=== PATIENT | female | born 1955 | race Two or more races ===

== ENCOUNTER 2016-08-15 08:16 | Outpatient (RCR) ==
--- NOTE | 2016-08-15 09:35 | OUTEVAL ---
Date of Service:08/15/16 SUBJECTIVE: Patient reports being schedule for a left TKA on 09/04/16. States she has attended a Total knee class and is supposed to get a HEP to work on prior to surgery. States left knee pain from arthritis has led her to need a TKA. She reports pain with most weight bearing. She understands that Dr. Zuleta does not usually order Home Health PT and she plans to come here for Outpatient PT. States she is worried about initially going home from the hospital due to having steps to get into her home. OBJECTIVE: Patient ambulates without an assistive device with decreased stance on the left LE. She demonstrates decreased left knee and hip flexion during swing phase. AROM of the left knee is full extension to 110 degrees with reports of pain and tightness. Right knee AROM is full extension to 130 degrees flexion. Patient instructed in HEP consisting of AP's, heel slides, quad sets, SAQ's, standing HS curls, and SLR's. Advised to take pain medication as prescribed and use ice consistently following surgery. Also gave instructions for Homemade ice packs and instructions for proper sequence for ascending and descending stairs. Patient given our phone number and advised to call with any questions prior to or following surgery. ASSESSMENT: Patient demonstrates understanding of HEP for left knee. She will be having a left TKA in a few weeks. She demonstrates no further skilled therapy at this time. Goal: Patient independent with HEP.-met. PLAN: Patient discharged with a HEP. MTDD
== END 2016-09-07 ==
PROVIDERS: ATTEND Orthopaedic Surgery
DX: M25.562 Pain in left knee (principal); M17.12 Unilateral primary osteoarthritis, left knee

== ENCOUNTER → 2016-10-08 | Outpatient (RCR) ==
--- NOTE | 2016-09-13 13:42 | RS.OPPTEV2 ---
Date of Note: 09/12/16 Visit #: 1 Date of Evaluation: 09/12/16 Payer Source: Medicaid Surgery Performed?: Yes (09/04/16 Left TKA) Treatment Diagnosis: Left knee pain, left knee effusion, s/p TKA History of Condition/Mechanism of Injury:: Reports continued knee pain from arthritis led her to have a TKA. Prior Level of Function.....Patient was independent with: ADL's, Self Care, Work /Vocation, Caregiving, Ambulation/Mobility, Community Integration/Access Functional Limitations: Sleep, Self Care, ADL's, Reaching, Pushing, Pulling, Lifting, Carrying, Sitting, Standing, Bending, Squatting, Ambulation, Community Access/Integration Current Subjective/complaints:: Patient reports that she was in the hospital overnight following her surgery. States she has been icing the knee and taking pain medications as prescribed. States she is sleeping on the couch because it is more comfortable at this time. She is using a rolling walker with all ambulation. Reports some tingling at times in the left LE, mostly later in the day. Reports she is limited with all selfcare and ADL's due to pain and limited knee motion. She is hopping it will not be long before she can drive. Treatment Side (optional): Left Medical History Medical History: Hypertension, Arthritis Surgical History: Hysterectomy Surgical History Comments:: Heart stents Hx Home Medications: Percocet, Lopressor, Lisinopril Patient's Goals: Her goal is to return to her previous level of function. Pain Assessment - Pain Description Pain Location: left knee Pain Description: Throbbing, Aching Current Pain Intensity: 8/10 Worst Pain Intensity: 10/10 Functional Outcome Measure LE Functional Scale: 15 (15/80=81.25% impairment) - G Codes & Severity Modifier G Codes & Modifier: NA Source of G Code score: NA Observation - Observation Inspection: Left knee presents with brittney intact to incision line. Demonstrates significant bruising throughout the left thigh,posterior knee, and calf. Girth Measurement Lower: Left LE: most superior aspect of incision 49 cm, Tibial plateau 39.25 cm, malleoli 22.75 cm Gait - Gait Pattern Gait Comments: Patient ambulates with a rolling walker with decreased stance on the left LE, decreased heelstrike, and decreased left hip and knee flexion. - Left Knee ROM Left Knee Extension: -1 from full extension Left Knee Flexion: 50 (degrees AAROM) Knee ROM Limitations: Soft Tissue Tightness, Pain - Right Knee ROM Right Knee Extension: full extension Right Knee Flexion: 130 (degrees AROM) - Left Knee Strength Left Knee Extension: 4- Good- Left Knee Flexion: 4- Good- - Right Knee Strength Right Knee Extension: 5 Normal Right Knee Flexion: 5 Normal Palpation Comments:: General tenderness throughout the left knee joint. Sensation - Sensation Comments: Reports numbness along the lateral aspect of the incision line. - Heat/Cryotherapy Treatment: Cryotherapy (X 15 mins to left knee following exercise) Interventions - Exercise/Activities/Manual Therapy Exercises/Activities: Patient assisted with left knee AROM flexion and extension. Performed SLR with assistance, Quad sets and ankle pumps. Discussed the importance of regaining knee flexion and extension early in rehab. Encouraged her to to emphasis knee flexion. Manual Therapy: NA - Charges Total Direct Minutes: 55 mins Total Treatment Time: 55 mins Procedures billed for this date of service:: BINGAL Low X 4, CP Assessment Assessment: Patient presents to therapy 8 days s/p left TKA. She presents limited knee AROM and strength due to effusion of the knee joint from her recent surgery. She reports limited ability with all selfcare and ADL's at this time due to limited AROM and pain. She will benefit from therapeutic exercises and modalities to assist her in regaining full AROM and returning to hre previous level of function. Patient Education: Education of diagnosis, Body/Joint mechanics, Home Exercise Program, Home Safety, Activity Modification, Education of Plan of Care Rehab Potential: Good Short Term Goals Goal #1: Patient independent in basic HEP. Goal to be met by: 09/26/16 Goal #2: Left knee active flexion 95 degrees. Goal to be met by: 10/02/16 Goal #3: Pt to demonstrate good quad control. Goal to be met by: 09/26/16 Block Hand Goals Goal #1: Pt knows HEP and to continue ex's to maintain functional level at D/C. Goal to be met by: 11/01/16 Goal #2: Score on LE functional index improved to 50/80. Goal to be met by: 11/01/16 Goal #3: Pt to amb. w/o assistive device w/ minimal gt deviation, community distance Goal to be met by: 08/24/17 Goal #4: Pt able to perform all selfcare and ADL's without difficulty. Goal to be met by: 11/01/16 Plan - Treatment to be Provided Procedures: Therapeutic Exercises, Therapeutic Activity, Patient Education Modalities: Electrical Stimulation, Cryotherapy - Treatment Plan Frequency: 3 X week Duration: 6 weeks ORDER # VISITS AND/OR THROUGH DATE: 11/01/16 - Treatment Code (1) Knee pain Qualifiers: Chronicity: acute Laterality: left Qualified Description: Acute pain of left knee Qualifier Code(s): (M25.562) Pain in left knee (2) Knee effusion Qualifiers: Laterality: left Qualified Description: Effusion of left knee Qualifier Code(s): (M25.462) Effusion, left knee (3) Aftercare following joint replacement surgery Qualifiers: Joint replacement surgery site: knee Laterality: left Qualified Description: Aftercare following left knee joint replacement surgery Qualifier Code(s): (Z47.1) Aftercare following joint replacement surgery
--- NOTE | 2016-09-14 14:30 | RS.OPPTDN ---
Subjective Date of Note: 09/14/16 Visit #: 2 Date of Evaluation: 09/12/16 Payer Source: Medicaid Treatment Diagnosis: Left knee pain, left knee effusion, s/p TKA Current Subjective/complaints:: Patient reports her pain is not too bad today. States Saturday evening her knee was very sore. She continues to ice the knee. Reports increased pain after therapy session today. States she came in feeling better than going out. Reports she goes back to Dr. Fenton on and he wants her to have 90 degrees of flexion by that time. Pain Assessment - Pain Description Pain Location: left knee Pain Description: Throbbing, Aching Current Pain Intensity: 6/10 Other Comments regarding Pain:: increased pain reported following therapy session - Treatment Modality: Electrical Stim Unattended Parameters/Method Applied: 4 large pads crossed current X 15 mins HVGS, up to 200 peak volts, to the left knee after exercises. - Heat/Cryotherapy Treatment: Cryotherapy (with Estim to the left knee) Interventions - Exercise/Activities/Manual Therapy Exercises/Activities: Performed mat exercises AP's, Quad sets. The following were with assistance: SLR, SAQ, HS curl with red band. Patient tolerated very little flexion in supine. Patient moved into sitting to work on flexion. Performed contract-relax to the quads, which did help gain increased knee flexion. Enouraged patient to continue icing the knee, elevating the leg when she is able, and to focus on knee flexion exercises. Patient given other examples for increasing knee flexion: using unaffected leg to push back on left leg in sitting, use of sheet or towel under thigh to help pull the hip and knee into flexion. Total minutes of Exercise: 27 mins Manual Therapy: Joint mobilizations into distraction performed to assist with pain and to faciliate knee flexion. - Objective Findings Observations,measurements,etc.: Active knee flexion in sitting 60-62 degrees. - Charges Total Direct Minutes: 27 mns Total Treatment Time: 42 mins Procedures billed for this date of service:: EX2, Estim, CP Assessment: Patient with marked limitation of left knee flexion. She continues to have pain and swelling, limiting her tolerance for flexion. She will benefit from continued exercises, modalities, and manual therapy to help her regain functional left knee AROM. Patient Education: Body/Joint mechanics, Home Exercise Program, Activity Modification, Education of Plan of Care Patient demonstrates compliance with HEP?: Yes Short Term Goals Goal #1: Patient independent in basic HEP. Goal to be met by: 09/26/16 Progress towards Goal:: Progressing Goal #2: Left knee active flexion 95 degrees. Goal to be met by: 10/02/16 Progress towards Goal:: Progressing Goal #3: Pt to demonstrate good quad control. Goal to be met by: 09/26/16 Progress towards Goal:: Progressing Veneer Grader Goals Goal #1: Pt knows HEP and to continue ex's to maintain functional level at D/C. Goal to be met by: 11/01/16 Goal #2: Score on LE functional index improved to 50/80. Goal to be met by: 11/01/16 Goal #3: Pt to amb. w/o assistive device w/ minimal gt deviation, community distance Goal to be met by: 11/01/16 Goal #4: Pt able to perform all selfcare and ADL's without difficulty. Goal to be met by: 11/01/16 Plan PLAN OF CARE EXPIRES ON:: 11/01/16 ORDER # VISITS AND/OR THROUGH DATE: 11/01/16 PLAN: Continue Plan of Care
--- NOTE | 2016-09-17 15:15 | RS.OPPTDN ---
Subjective Date of Note: 09/17/16 Visit #: 3 Date of Evaluation: 09/12/16 Payer Source: Medicaid Treatment Diagnosis: Left knee pain, left knee effusion, s/p TKA Current Subjective/complaints:: Reports muscle soreness below the knee today.She is icing the knee as needed. Pain Assessment - Pain Description Pain Location: left knee Pain Description: Throbbing, Aching Current Pain Intensity: 4/10 - Treatment Modality: Electrical Stim Unattended Parameters/Method Applied: 20 mins. high volt to L knee,channel 1 @ 120,channel 2 @ 160 pv. Patient Position: Supine - Heat/Cryotherapy Treatment: Cryotherapy (concurrent with e-stim) Interventions - Exercise/Activities/Manual Therapy Exercises/Activities: 35 mins. TKA exercises of ankle pumps,QS,SAQ's;SLR's and heelslides with assist.Stretching to quads in sitting using contract-relax .Knee flexion to 86 degrees,extension is WFL. Total minutes of Exercise: 35 Manual Therapy: Joint mobilizations into distraction performed to assist with pain and to faciliate knee flexion. Total minutes of Manual Therapy: 0 HOME EXERCISE PROGRAM: Ankle pumps,QS, SAQ,SLR, heelslides,LAQ's.Recommended to do HEP 2-3x/day. - Charges Total Direct Minutes: 35 Total Treatment Time: 55 Procedures billed for this date of service:: cp,e-stim,ex 2 Assessment: Patient has moderate L knee edema and quads tightness,but responds well to stretches.She is guarded due to pain initially,but this also improves as the exercises progress. Patient Education: Education of diagnosis, Body/Joint mechanics, Home Exercise Program, Home Safety, Activity Modification, Education of Plan of Care Short Term Goals Goal #1: Patient independent in basic HEP. Goal to be met by: 09/26/16 Progress towards Goal:: Progressing Goal #2: Left knee active flexion 95 degrees. Goal to be met by: 10/02/16 Progress towards Goal:: Progressing Goal #3: Pt to demonstrate good quad control. Goal to be met by: 09/26/16 Progress towards Goal:: Progressing [facility] Goals Goal #1: Pt knows HEP and to continue ex's to maintain functional level at D/C. Goal to be met by: 11/01/16 Progress towards goal: Progressing Goal #2: Score on LE functional index improved to 50/80. Goal to be met by: 11/01/16 Goal #3: Pt to amb. w/o assistive device w/ minimal gt deviation, community distance Goal to be met by: 11/01/16 Goal #4: Pt able to perform all selfcare and ADL's without difficulty. Goal to be met by: 11/01/16 Plan PLAN OF CARE EXPIRES ON:: 11/01/16 ORDER # VISITS AND/OR THROUGH DATE: 11/01/16 PLAN: Continue Plan of Care
--- NOTE | 2016-09-21 12:47 | RS.OPPTDN ---
Subjective Date of Note: 09/19/16 Visit #: 4 Date of Evaluation: 09/12/16 Payer Source: Medicaid Treatment Diagnosis: Left knee pain, left knee effusion, s/p TKA Current Subjective/complaints:: Patient pleasant ,compliant .She reports stiffness in the L knee today. Pain Assessment - Pain Description Pain Location: left knee Pain Description: Throbbing, Aching Current Pain Intensity: 4/10 - Treatment Modality: Electrical Stim Unattended Parameters/Method Applied: 20 mins. high volt to L knee ,channel 1 above knee @ 150 pv,channel 2 below knee @ 210 pv. Patient Position: Supine - Heat/Cryotherapy Treatment: Cryotherapy (concurrent with e-stim) Interventions - Exercise/Activities/Manual Therapy Exercises/Activities: 35 mins. TKA exercises of ankle pumps,QS,SAQ's;SLR's and heelslides with assist.Stretching to quads in sitting using contract-relax .Knee flexion to 86 degrees,extension is WFL. Total minutes of Exercise: 35 Manual Therapy: Joint mobilizations into distraction performed to assist with pain and to faciliate knee flexion. Total minutes of Manual Therapy: 0 HOME EXERCISE PROGRAM: Ankle pumps,QS, SAQ,SLR, heelslides,LAQ's.Recommended to do HEP 2-3x/day. - Charges Total Direct Minutes: 35 Total Treatment Time: 55 Procedures billed for this date of service:: cp,e-stim,ex 2 Assessment: Patient still is guarded with knee flexion due to pain and tightness ,has good extension.The limited ROM is due to edema,still has bruising medially and laterally on the L LE. Patient Education: Education of diagnosis, Body/Joint mechanics, Home Exercise Program, Home Safety, Activity Modification, Education of Plan of Care Patient demonstrates compliance with HEP?: Yes Short Term Goals Goal #1: Patient independent in basic HEP. Goal to be met by: 09/26/16 Progress towards Goal:: Progressing Goal #2: Left knee active flexion 95 degrees. Goal to be met by: 10/02/16 Progress towards Goal:: Progressing Goal #3: Pt to demonstrate good quad control. Goal to be met by: 09/26/16 Progress towards Goal:: Progressing [facility] Goals Goal #1: Pt knows HEP and to continue ex's to maintain functional level at D/C. Goal to be met by: 11/01/16 Progress towards goal: Progressing Goal #2: Score on LE functional index improved to 50/80. Goal to be met by: 11/01/16 Goal #3: Pt to amb. w/o assistive device w/ minimal gt deviation, community distance Goal to be met by: 11/01/16 Goal #4: Pt able to perform all selfcare and ADL's without difficulty. Goal to be met by: 11/01/16 Plan PLAN OF CARE EXPIRES ON:: 11/01/16 ORDER # VISITS AND/OR THROUGH DATE: 11/01/16 PLAN: Continue Plan of Care
--- NOTE | 2016-09-21 14:17 | RS.OPPTDN ---
Subjective Date of Note: 09/21/16 Visit #: 5 Date of Evaluation: 09/12/16 Payer Source: Medicaid Treatment Diagnosis: Left knee pain, left knee effusion, s/p TKA Current Subjective/complaints:: Patient reports increased pain today,appears more swollen today,but steady giat with R/W.Patient inquiring about using cane, will progress to less restrictive device as she progresses.She still has antalgic gait with use of R/W. Pain Assessment - Pain Description Pain Location: left knee Pain Description: Tightness, Throbbing, Aching Current Pain Intensity: 09/17 - Treatment Modality: Electrical Stim Unattended Parameters/Method Applied: 20 mins. high volt to L knee,channel 1 and 2 @ 210 pv. - Heat/Cryotherapy Treatment: Cryotherapy (concurent with e-stim) Interventions - Exercise/Activities/Manual Therapy Exercises/Activities: 30 mins. TKA exercises of ankle pumps,QS,SAQ's;SLR's and heelslides with assist.Stretching to quads in sitting using contract-relax .Knee flexion to 90 degrees in sitting ,extension is WFL. Total minutes of Exercise: 30 Manual Therapy: Joint mobilizations into distraction performed to assist with pain and to faciliate knee flexion. Total minutes of Manual Therapy: 0 HOME EXERCISE PROGRAM: Ankle pumps,QS, SAQ,SLR, heelslides,LAQ's.Recommended to do HEP 2-3x/day. - Charges Total Direct Minutes: 30 Total Treatment Time: 50 Procedures billed for this date of service:: cp,e-stim,ex Assessment: Patient continues to have soft end feel for flexion ,but her pain level and edema results in patient muscle guarding.She mcgee sgood potential to increase her knee flexion and progress well.She is compliant to HEP recommendations. Patient Education: Education of diagnosis, Body/Joint mechanics, Home Exercise Program, Home Safety, Activity Modification, Education of Plan of Care Patient demonstrates compliance with HEP?: Yes Short Term Goals Goal #1: Patient independent in basic HEP. Goal to be met by: 09/26/16 Progress towards Goal:: Progressing Goal #2: Left knee active flexion 95 degrees. Goal to be met by: 10/02/16 (90 today with pain) Progress towards Goal:: Progressing Goal #3: Pt to demonstrate good quad control. Goal to be met by: 09/26/16 Progress towards Goal:: Progressing Fdc Goals Goal #1: Pt knows HEP and to continue ex's to maintain functional level at D/C. Goal to be met by: 11/01/16 Progress towards goal: Progressing Goal #2: Score on LE functional index improved to 50/80. Goal to be met by: 11/01/16 Goal #3: Pt to amb. w/o assistive device w/ minimal gt deviation, community distance Goal to be met by: 11/01/16 Goal #4: Pt able to perform all selfcare and ADL's without difficulty. Goal to be met by: 11/01/16 Plan PLAN OF CARE EXPIRES ON:: 11/01/16 ORDER # VISITS AND/OR THROUGH DATE: 11/01/16 PLAN: Progress Exercises
--- NOTE | 2016-09-25 15:14 | RS.OPPTDN ---
Subjective Date of Note: 09/25/16 Visit #: 6 Date of Evaluation: 09/12/16 Payer Source: Medicaid Treatment Diagnosis: Left knee pain, left knee effusion, s/p TKA Current Subjective/complaints:: Patient reports seeing Dr. Zuleta yesterday with good report ,except he is not pleased with her knee flexion.Patient was re- assured today it will improve as her therapy progresses. Pain Assessment - Pain Description Pain Location: left knee Pain Description: Tightness, Throbbing, Aching Current Pain Intensity: not rated - Treatment Modality: Electrical Stim Unattended Parameters/Method Applied: 20 mins. high volt to L knee,channel 1 above knee @ 200 pv,channel 2 below @ 185 pv. Patient Position: Sitting Comments: Long-sitting due to back pain as opposed to supine. - Heat/Cryotherapy Treatment: Cryotherapy (concurrent with e-stim) Interventions - Exercise/Activities/Manual Therapy Exercises/Activities: 35 mins. TKA exercises,multiple reps. of passive heelslides,then seated LAQ's.legpress.3/15 using both LE's @30 reps,then 2/10 @ 15 # using L LE only,progressed to 30 # using L LE only,2/10 reps.Grade II AP glides to L knee. Total minutes of Exercise: 35 Manual Therapy: N/A Total minutes of Manual Therapy: 0 HOME EXERCISE PROGRAM: Ankle pumps,QS, SAQ,SLR, heelslides,LAQ's.Recommended to do HEP 2-3x/day. - Objective Findings Observations,measurements,etc.: L knee flexion to 90 degrees initially,then progressed to 94 degrees with stretch applied. - Charges Total Direct Minutes: 30 Total Treatment Time: 50 Procedures billed for this date of service:: cp,e-stim,ex 2 Assessment: Patient is progressing ,she does have soft end feel present for flexion today.We discussed to emphasize the flexion exercises as often as possible.She does still have moderate edema ,bruising ,and warmth present.Her extension is good.She ambulates with cane and slightly antalgic gait today. Patient Education: Education of diagnosis, Body/Joint mechanics, Home Exercise Program, Home Safety, Activity Modification, Education of Plan of Care Patient demonstrates compliance with HEP?: Yes Short Term Goals Goal #1: Patient independent in basic HEP. Goal to be met by: 09/26/16 Progress towards Goal:: Partially Met Goal #2: Left knee active flexion 95 degrees. Goal to be met by: 10/02/16 (94 today with pain) Progress towards Goal:: Progressing Goal #3: Pt to demonstrate good quad control. Goal to be met by: 09/26/16 Progress towards Goal:: Progressing Long-Term Goals Goal #1: Pt knows HEP and to continue ex's to maintain functional level at D/C. Goal to be met by: 11/01/16 Progress towards goal: Partially Met Goal #2: Score on LE functional index improved to 50/80. Goal to be met by: 11/01/16 Goal #3: Pt to amb. w/o assistive device w/ minimal gt deviation, community distance Goal to be met by: 11/01/16 Goal #4: Pt able to perform all selfcare and ADL's without difficulty. Goal to be met by: 11/01/16 Progress towards goal: Progressing Plan PLAN OF CARE EXPIRES ON:: 11/01/16 ORDER # VISITS AND/OR THROUGH DATE: 11/01/16 PLAN: Progress Exercises
--- NOTE | 2016-09-26 15:07 | RS.OPPTDN ---
Subjective Date of Note: 09/26/16 Date of Evaluation: 09/12/16 Payer Source: Medicaid Treatment Diagnosis: Left knee pain, left knee effusion, s/p TKA Current Subjective/complaints:: Patient c/o pain and tightness behind the L knee. She says today is the first day driving. She brings her grandson so that she has someone with her if needed. She says her pain pill has worn off, but she was able to drive in well. Pain Assessment - Pain Description Pain Location: left knee Pain Description: Tightness, Throbbing, Aching Current Pain Intensity: 7-810 - Treatment Modality: Electrical Stim Unattended Parameters/Method Applied: hivolt 4 large pads crossed at the L knee @ 205 pk volts x 20 mins prior to therex Patient Position: Sitting Comments: Long sitting per patient Interventions - Exercise/Activities/Manual Therapy Exercises/Activities: 35 mins. Passive stretching, patellar mobs, and Grade II joint mobs to facilitate knee flex/ext. She performs QS, SAQ, heel slides multiple reps with overpressures, hip abd/add, SLR. All 2x10. Sits for LAQ's and knee flexion with self stretching. Legpress 3/15 using both LE's @30 reps, then 2/10 @ 15 # using L LE only. Loaned patient our straight cane due to patient's rubber point came off. Readjusted for proper height. Manual Therapy: N/A HOME EXERCISE PROGRAM: Ankle pumps,QS, SAQ,SLR, heelslides,LAQ's.Recommended to do HEP 2-3x/day. - Charges Total Direct Minutes: 35 Total Treatment Time: 55 Procedures billed for this date of service:: cp, estim (un), ex2 Assessment: Patient able to drive into PT appt today from [place] with william for support. She maintains high pain rating from pain pill wearing off and admits symptoms are mostly at the lateral aspect of the knee and at hamstrings. She demo good flexibility today with stretching and overpressures provided by the patient and CAFETERIA DIRECTOR. Good patellar mobility. Patient Education: Education of diagnosis, Body/Joint mechanics, Home Exercise Program, Home Safety, Activity Modification, Education of Plan of Care Patient demonstrates compliance with HEP?: Yes Short Term Goals Goal #1: Patient independent in basic HEP. Goal to be met by: 09/26/16 Progress towards Goal:: Partially Met Goal #2: Left knee active flexion 95 degrees. Goal to be met by: 10/02/16 (94 today with pain) Progress towards Goal:: Progressing Goal #3: Pt to demonstrate good quad control. Goal to be met by: 09/26/16 Progress towards Goal:: Progressing Fuse Maker Goals Goal #1: Pt knows HEP and to continue ex's to maintain functional level at D/C. Goal to be met by: 11/01/16 Progress towards goal: Partially Met Goal #2: Score on LE functional index improved to 50/80. Goal to be met by: 11/01/16 Goal #3: Pt to amb. w/o assistive device w/ minimal gt deviation, community distance Goal to be met by: 11/01/16 Goal #4: Pt able to perform all selfcare and ADL's without difficulty. Goal to be met by: 11/01/16 Progress towards goal: Progressing Plan PLAN OF CARE EXPIRES ON:: 11/01/16 ORDER # VISITS AND/OR THROUGH DATE: 11/01/16 PLAN: Progress Exercises
--- NOTE | 2016-09-28 14:22 | RS.OPPTDN ---
Subjective Date of Note: 09/28/16 Visit #: 8 Date of Evaluation: 09/12/16 Payer Source: Medicaid Treatment Diagnosis: Left knee pain, left knee effusion, s/p TKA Current Subjective/complaints:: Patient reports today is a rough day ,in regards to the L knee pain .She enters clinic with antalgic gait. Pain Assessment - Pain Description Pain Location: left knee Pain Description: Tightness, Throbbing, Aching Current Pain Intensity: 7-8/10 with walking,2/10 at rest - Heat/Cryotherapy Treatment: Hot Pack, Cryotherapy (20 mis. heat to quads,cold to actual knee joint line ,prior to manual therapy and exercises) Interventions - Exercise/Activities/Manual Therapy Exercises/Activities: 35 mins. Passive stretching, patellar mobs, and Grade II joint mobs to facilitate knee flex/ext.Multiple reps of QS, AAROM heelslides and SLR's.Active flexion to 95 ,progressed to 103 passively.Extension is -6 . Total minutes of Exercise: 35 Manual Therapy: N/A Total minutes of Manual Therapy: 0 HOME EXERCISE PROGRAM: Ankle pumps,QS, SAQ,SLR, heelslides,LAQ's.Recommended to do HEP 2-3x/day. - Charges Total Direct Minutes: 40 Total Treatment Time: 60 Procedures billed for this date of service:: hp,cp,ex 3 Assessment: Patient mcgee sincreased pain todya with flexion,but agrees to more aggressive stretch due to tightness in the quads.She has less warmth present , but still has moderate bruising and edema present.Patient reminded and encouraged to focus on the flexion and exercise 2-3 x/day. Patient Education: Education of diagnosis, Body/Joint mechanics, Home Exercise Program, Home Safety, Activity Modification, Education of Plan of Care Short Term Goals Goal #1: Patient independent in basic HEP. Goal to be met by: 09/26/16 Progress towards Goal:: Partially Met Goal #2: Left knee active flexion 95 degrees. Goal to be met by: 10/02/16 (95 AROM ,not yet consistent) Progress towards Goal:: Partially Met Goal #3: Pt to demonstrate good quad control. Goal to be met by: 09/26/16 Progress towards Goal:: Progressing Flight Data Technician Goals Goal #1: Pt knows HEP and to continue ex's to maintain functional level at D/C. Goal to be met by: 11/01/16 Progress towards goal: Partially Met Goal #2: Score on LE functional index improved to 50/80. Goal to be met by: 11/01/16 Goal #3: Pt to amb. w/o assistive device w/ minimal gt deviation, community distance Goal to be met by: 11/01/16 Goal #4: Pt able to perform all selfcare and ADL's without difficulty. Goal to be met by: 11/01/16 Progress towards goal: Progressing Plan PLAN OF CARE EXPIRES ON:: 11/01/16 ORDER # VISITS AND/OR THROUGH DATE: 11/01/16 PLAN: Progress Exercises
--- NOTE | 2016-10-01 15:30 | RS.OPPTDN ---
Subjective Date of Note: 10/01/16 Visit #: 9 Date of Evaluation: 09/12/16 Payer Source: Medicaid Treatment Diagnosis: Left knee pain, left knee effusion, s/p TKA Current Subjective/complaints:: Reports she is exercising more ,trying to achieve more flexion of the L knee. Pain Assessment - Pain Description Pain Location: left knee Pain Description: Tightness, Throbbing, Aching Current Pain Intensity: not rated - Treatment Modality: Electrical Stim Unattended Parameters/Method Applied: 20 mins. high volt to L knee,channel 1 @ 265 pv, channel 2 @250 pv. Patient Position: Sitting - Heat/Cryotherapy Treatment: Hot Pack, Cryotherapy (hot pack to quads,cold to knee while on e-stim ) Interventions - Exercise/Activities/Manual Therapy Exercises/Activities: 35 mins. Passive stretching, patellar mobs, and Grade II joint mobs to facilitate knee flex/ext.Multiple reps of QS, AAROM heelslides and SLR's with 3# resistance.Active flexion to 93-95 ,progressed to 103 passively.Extension is -4 . Total minutes of Exercise: 35 Manual Therapy: N/A Total minutes of Manual Therapy: 0 HOME EXERCISE PROGRAM: Ankle pumps,QS, SAQ,SLR, heelslides,LAQ's.Recommended to do HEP 2-3x/day. - Charges Total Direct Minutes: 35 Total Treatment Time: 55 Procedures billed for this date of service:: cp,hp,e-stim,ex 2 Assessment: Patient has less edema present ,has the same ROM present as last session ,but easier to achieve today.Her quads are firing better when initiating SLR's. Patient Education: Education of diagnosis, Body/Joint mechanics, Home Exercise Program, Home Safety, Activity Modification, Education of Plan of Care Patient demonstrates compliance with HEP?: Yes Short Term Goals Goal #1: Patient independent in basic HEP. Goal to be met by: 09/26/16 Progress towards Goal:: Partially Met Goal #2: Left knee active flexion 95 degrees. Goal to be met by: 10/02/16 (95 AROM ,not yet consistent) Progress towards Goal:: Partially Met Goal #3: Pt to demonstrate good quad control. Goal to be met by: 09/26/16 Progress towards Goal:: Progressing Label Coder Goals Goal #1: Pt knows HEP and to continue ex's to maintain functional level at D/C. Goal to be met by: 11/01/16 Progress towards goal: Partially Met Goal #2: Score on LE functional index improved to 50/80. Goal to be met by: 11/01/16 Goal #3: Pt to amb. w/o assistive device w/ minimal gt deviation, community distance Goal to be met by: 11/01/16 Progress towards goal: Progressing Goal #4: Pt able to perform all selfcare and ADL's without difficulty. Goal to be met by: 11/01/16 Progress towards goal: Progressing Plan PLAN OF CARE EXPIRES ON:: 11/01/16 ORDER # VISITS AND/OR THROUGH DATE: 11/01/16 PLAN: Progress Exercises
--- NOTE | 2016-10-03 15:24 | RS.OPPTDN ---
Subjective Date of Note: 10/03/16 Visit #: 10 Date of Evaluation: 09/12/16 Payer Source: Medicaid Treatment Diagnosis: Left knee pain, left knee effusion, s/p TKA Current Subjective/complaints:: Patient reports she is doing her exercises as tolerated,working on bending the knee. Pain Assessment - Pain Description Pain Location: left knee Pain Description: Tightness, Throbbing, Aching Current Pain Intensity: not rated - Heat/Cryotherapy Treatment: Hot Pack, Cryotherapy (20 mins. heat to quads,followed by 10 mins. ice massage to L knee) Interventions - Exercise/Activities/Manual Therapy Exercises/Activities: 25 mins. Passive stretching, patellar mobs, and Grade II joint mobs to facilitate knee flex/ext.Multiple reps of QS, AAROM heelslides .Active flexion 103 with self-stretch,108 to 110 with multiple reps. passively.Extension is -3 . Total minutes of Exercise: 25 Manual Therapy: 10 mins. patellar glides and AP mobs . HOME EXERCISE PROGRAM: Ankle pumps,QS, SAQ,SLR, heelslides,LAQ's.Recommended to do HEP 2-3x/day. - Charges Total Direct Minutes: 45 Total Treatment Time: 65 Procedures billed for this date of service:: hp,cp,ex2,manual 1 Assessment: Patient continues to have increased flexion ,although her pain elevates significantly,she has softer end feel for flexion.The patellar motion is better,with less edema and warmth in the L knee. Patient Education: Education of diagnosis, Body/Joint mechanics, Home Exercise Program, Home Safety, Activity Modification, Education of Plan of Care Patient demonstrates compliance with HEP?: Yes Short Term Goals Goal #1: Patient independent in basic HEP. Goal to be met by: 09/26/16 Progress towards Goal:: Partially Met Goal #2: Left knee active flexion 95 degrees. Goal to be met by: 10/02/16 Progress towards Goal:: Met Goal #3: Pt to demonstrate good quad control. Goal to be met by: 09/26/16 Progress towards Goal:: Progressing Custodial Goals Goal #1: Pt knows HEP and to continue ex's to maintain functional level at D/C. Goal to be met by: 11/01/16 Progress towards goal: Partially Met Goal #2: Score on LE functional index improved to 50/80. Goal to be met by: 11/01/16 Goal #3: Pt to amb. w/o assistive device w/ minimal gt deviation, community distance Goal to be met by: 11/01/16 Progress towards goal: Progressing Goal #4: Pt able to perform all selfcare and ADL's without difficulty. Goal to be met by: 11/01/16 Progress towards goal: Progressing Plan PLAN OF CARE EXPIRES ON:: 11/01/16 ORDER # VISITS AND/OR THROUGH DATE: 11/01/16 PLAN: Progress Exercises
--- NOTE | 2016-10-05 14:18 | RS.OPPTDN ---
Subjective Date of Note: 10/05/16 Visit #: 11 Date of Evaluation: 09/12/16 Payer Source: Medicaid Treatment Diagnosis: Left knee pain, left knee effusion, s/p TKA Current Subjective/complaints:: Patient reports she is doing her exercises as often as possible,working hard to increase the knee flexion. Pain Assessment - Pain Description Pain Location: left knee Pain Description: Tightness, Throbbing, Aching Current Pain Intensity: minimal at rest Worst Pain Intensity: 8 with excessive flexion Interventions - Exercise/Activities/Manual Therapy Exercises/Activities: 50 mins.,beginning on exercise bike with supervision x 5 mins. Passive stretching, patellar mobs, and Grade II joint mobs to facilitate knee flex/ext.Multiple reps of QS, AAROM heelslides .Active flexion 103 with self-stretch,108 to 110 with multiple reps. passively.Extension is -3 . Total minutes of Exercise: 25 Manual Therapy: 10 mins. patellar glides and AP mobs . Total minutes of Manual Therapy: 10 HOME EXERCISE PROGRAM: Ankle pumps,QS, SAQ,SLR, heelslides,LAQ's.Recommended to do HEP 2-3x/day. - Charges Total Direct Minutes: 55 Total Treatment Time: 55 Procedures billed for this date of service:: hp,ex 3 Assessment: Patient continues to have less edema in the L knee,improved flexion actively with less pain.She ambulates with cane at this time. Patient Education: Education of diagnosis, Body/Joint mechanics, Home Exercise Program, Home Safety, Activity Modification, Education of Plan of Care Patient demonstrates compliance with HEP?: Yes Short Term Goals Goal #1: Patient independent in basic HEP. Goal to be met by: 09/26/16 Progress towards Goal:: Met Goal #2: Left knee active flexion 95 degrees. Goal to be met by: 10/02/16 Progress towards Goal:: Met Goal #3: Pt to demonstrate good quad control. Goal to be met by: 09/26/16 Progress towards Goal:: Progressing Assisted Goals Goal #1: Pt knows HEP and to continue ex's to maintain functional level at D/C. Goal to be met by: 11/01/16 Progress towards goal: Partially Met Goal #2: Score on LE functional index improved to 50/80. Goal to be met by: 11/01/16 Goal #3: Pt to amb. w/o assistive device w/ minimal gt deviation, community distance Goal to be met by: 11/01/16 Progress towards goal: Progressing Goal #4: Pt able to perform all selfcare and ADL's without difficulty. Goal to be met by: 11/01/16 Progress towards goal: Progressing Plan PLAN OF CARE EXPIRES ON:: 11/01/16 ORDER # VISITS AND/OR THROUGH DATE: 11/01/16 PLAN: Progress Exercises
--- NOTE | 2016-10-08 14:20 | RS.OPPTDN ---
Subjective Date of Note: 10/08/16 Visit #: 12 Date of Evaluation: 09/12/16 Payer Source: Medicaid Treatment Diagnosis: Left knee pain, left knee effusion, s/p TKA Current Subjective/complaints:: Reports she continues to do her HEP often, focusing on the flexion of the L knee. Pain Assessment - Pain Description Pain Location: left knee Pain Description: Tightness, Dull, Aching Current Pain Intensity: 3/10 - Heat/Cryotherapy Treatment: Hot Pack, Cryotherapy (20 mins. heat to quads,and cold to knee prior to exercises) Interventions - Exercise/Activities/Manual Therapy Exercises/Activities: 35 mins.,beginning on leg press,3/15 reps. @ 30,45 60 # .Standing mini-squats using therapy ball behind her back, x 10 reps.Ended session with Grade II joint mobs,then passive streching into flexion to 103, then patient achieves 110 degrees x 2 reps for 30 secs. Total minutes of Exercise: 35 Manual Therapy: N/A Total minutes of Manual Therapy: 0 HOME EXERCISE PROGRAM: Ankle pumps,QS, SAQ,SLR, heelslides,LAQ's.Recommended to do HEP 2-3x/day. - Objective Findings Observations,measurements,etc.: LE functional score is 28/80 today (65% deficit) - Charges Total Direct Minutes: 35 Total Treatment Time: 55 Procedures billed for this date of service:: hp,cp,ex 2 Assessment: Patient has less edema in the L knee today.Her quad firing is improving ,patellar mobility also improved as the edema lessens.Her AROM is better,has full extension ,softer end feel for flexion. Patient Education: Education of diagnosis, Body/Joint mechanics, Home Exercise Program, Home Safety, Activity Modification, Education of Plan of Care Patient demonstrates compliance with HEP?: Yes Short Term Goals Goal #1: Patient independent in basic HEP. Goal to be met by: 09/26/16 Progress towards Goal:: Met Goal #2: Left knee active flexion 95 degrees. Goal to be met by: 10/02/16 Progress towards Goal:: Met Goal #3: Pt to demonstrate good quad control. Goal to be met by: 09/26/16 Progress towards Goal:: Progressing Prison Goals Goal #1: Pt knows HEP and to continue ex's to maintain functional level at D/C. Goal to be met by: 11/01/16 Progress towards goal: Partially Met Goal #2: Score on LE functional index improved to 50/80. Goal to be met by: 11/01/16 () Progress towards goal: Progressing Goal #3: Pt to amb. w/o assistive device w/ minimal gt deviation, community distance Goal to be met by: 11/01/16 Progress towards goal: Progressing Goal #4: Pt able to perform all selfcare and ADL's without difficulty. Goal to be met by: 11/01/16 Progress towards goal: Progressing Plan PLAN OF CARE EXPIRES ON:: 11/01/16 ORDER # VISITS AND/OR THROUGH DATE: 11/01/16 PLAN: Progress Exercises
== END ==
PROVIDERS: ATTEND Orthopaedic Surgery
DX: M17.12 Unilateral primary osteoarthritis, left knee (principal)

== ENCOUNTER 2016-10-17 13:00 | Outpatient (RCR) ==
--- NOTE | 2016-10-10 15:00 | RS.OPPTDN ---
Subjective Date of Note: 10/10/16 Visit #: 13 Date of Evaluation: 09/12/16 Payer Source: Medicaid Treatment Diagnosis: Left knee pain, left knee effusion, s/p TKA Current Subjective/complaints:: Reports the knee feels better,les warm and less swollen. Pain Assessment - Pain Description Pain Location: left knee Pain Description: Dull Current Pain Intensity: 3/10 Interventions - Exercise/Activities/Manual Therapy Exercises/Activities: 60 mins.,beginning on exercise bike x 15 mins.,then leg press,15 reps. @ 45 , 60 #.Single L leg press.05/23 @ 30 #.315 reps. heelslides and SLR's in supine,LAQ's 15 .Active flexion today @ 103 to 105 , then 108 to 110 with self stretch applied. Total minutes of Exercise: 60 Manual Therapy: N/A Total minutes of Manual Therapy: 0 HOME EXERCISE PROGRAM: Ankle pumps,QS, SAQ,SLR, heelslides,LAQ's.Recommended to do HEP 2-3x/day.Progress to standing exercises of ankle pumps,marching in place, mini-squats,hams. curls. - Charges Total Direct Minutes: 45 Total Treatment Time: 60 Procedures billed for this date of service:: ex 3 Assessment: Patient progressing ,with increased strength in the quads and hamstrings.She has slowly improved her knee flexion as the edema has lessened. Patient Education: Home Exercise Program, Education of Plan of Care Patient demonstrates compliance with HEP?: Yes Short Term Goals Goal #1: Patient independent in basic HEP. Goal to be met by: 09/26/16 Progress towards Goal:: Met Goal #2: Left knee active flexion 95 degrees. Goal to be met by: 10/02/16 Progress towards Goal:: Met Goal #3: Pt to demonstrate good quad control. Goal to be met by: 09/26/16 Progress towards Goal:: Partially Met Music Teacher Goals Goal #1: Pt knows HEP and to continue ex's to maintain functional level at D/C. Goal to be met by: 11/01/16 Progress towards goal: Partially Met Goal #2: Score on LE functional index improved to 50/80. Goal to be met by: 11/01/16 (28/80) Progress towards goal: Progressing Goal #3: Pt to amb. w/o assistive device w/ minimal gt deviation, community distance Goal to be met by: 11/01/16 Progress towards goal: Progressing Goal #4: Pt able to perform all selfcare and ADL's without difficulty. Goal to be met by: 11/01/16 Progress towards goal: Progressing Plan PLAN OF CARE EXPIRES ON:: 11/01/16 ORDER # VISITS AND/OR THROUGH DATE: 11/01/16 PLAN: Progress Exercises
--- NOTE | 2016-10-12 15:40 | RS.OPPTDN ---
Subjective Date of Note: 10/12/16 Visit #: 14 Date of Evaluation: 09/12/16 Payer Source: Medicaid Treatment Diagnosis: Left knee pain, left knee effusion, s/p TKA Current Subjective/complaints:: Patient states she is continuing to work on all exercises at home. She is worried that when she goes back to see Dr. Fenton, he will want to do a manipulation. Reports she goes around her house sometimes without an assistive device. Pain Assessment - Pain Description Pain Location: left knee Pain Description: Dull Current Pain Intensity: 310 Interventions - Exercise/Activities/Manual Therapy Exercises/Activities: 60 mins.,beginning on exercise bike x 15 mins.,then leg press,05/23 reps. @ 45 #. Single L leg press. 05/23 reps @ 30 #. SLR's in supine 2.5 #,LAQ's 2.5#, SAQ 4# 15. Active flexion in supine to 110, sitting on side of table 109. Extension -1 degree. Manual Therapy: N/A HOME EXERCISE PROGRAM: Ankle pumps,QS, SAQ,SLR, heelslides,LAQ's.Recommended to do HEP 2-3x/day.Progress to standing exercises of ankle pumps,marching in place, mini-squats,hams. curls. - Objective Findings Observations,measurements,etc.: Ambulates in department with straight cane in right hand. Demonstrates improved heelstrike. Continues to demonstrate less stance phase on the left LE. Exhibits moderate swelling in the left ankle and minimal to moderate swelling continues at the left knee joint. - Charges Total Direct Minutes: 38 mins (bike not included) Total Treatment Time: 38 mins Procedures billed for this date of service:: EX2 Assessment: Patient demonstrates continued progress with active knee flexion. Continues to use a straight cane with community distances. Demonstrates potential to benefit from continued skilled therapy to progress exercises as indicated to achieve maximum functional AROM. Patient Education: Home Exercise Program Patient demonstrates compliance with HEP?: Yes Short Term Goals Goal #1: Patient independent in basic HEP. Goal to be met by: 09/26/16 Progress towards Goal:: Met Goal #2: Left knee active flexion 95 degrees. Goal to be met by: 10/02/16 Progress towards Goal:: Met Goal #3: Pt to demonstrate good quad control. Goal to be met by: 09/26/16 Progress towards Goal:: Partially Met Shelter Goals Goal #1: Pt knows HEP and to continue ex's to maintain functional level at D/C. Goal to be met by: 11/01/16 Progress towards goal: Partially Met Goal #2: Score on LE functional index improved to 50/80. Goal to be met by: 11/01/16 (28/80) Progress towards goal: Progressing Goal #3: Pt to amb. w/o assistive device w/ minimal gt deviation, community distance Goal to be met by: 11/01/16 Progress towards goal: Progressing Goal #4: Pt able to perform all selfcare and ADL's without difficulty. Goal to be met by: 11/01/16 Progress towards goal: Progressing Plan PLAN OF CARE EXPIRES ON:: 11/01/16 ORDER # VISITS AND/OR THROUGH DATE: 11/01/16 PLAN: Continue Plan of Care
--- NOTE | 2016-10-15 14:05 | RS.OPPTDN ---
Subjective Date of Note: 10/15/16 Visit #: 15 Date of Evaluation: 09/12/16 Payer Source: Medicaid Treatment Diagnosis: Left knee pain, left knee effusion, s/p TKA Current Subjective/complaints:: Patient reports doing her exercises are becoming less difficult and less painful. Pain Assessment - Pain Description Pain Location: left knee Pain Description: Dull Current Pain Intensity: not rated Interventions - Exercise/Activities/Manual Therapy Exercises/Activities: 60 mins.,beginning on exercise bike x 15 mins.,then leg press,05/23 reps. @ 45 #. Single L leg press. 05/23 reps @ 45 #. SLR's in supine 2.5 #,LAQ's 2.5#, SAQ 4# 05/23. Active flexion in supine to 110,113 with self- stretch. Total minutes of Exercise: 60 Manual Therapy: N/A Total minutes of Manual Therapy: 0 HOME EXERCISE PROGRAM: Ankle pumps,QS, SAQ,SLR, heelslides,LAQ's.Recommended to do HEP 2-3x/day.Progress to standing exercises of ankle pumps,marching in place, mini-squats,hams. curls. - Charges Total Direct Minutes: 45 Total Treatment Time: 60 Procedures billed for this date of service:: ex 3 Assessment: Progressing well,less edema ,less warmth today,improved quad firing ,softer end feel for flexion.She repoirts ambulating more without cane. Patient Education: Education of diagnosis, Body/Joint mechanics, Home Exercise Program, Home Safety, Activity Modification, Education of Plan of Care Patient demonstrates compliance with HEP?: Yes Short Term Goals Goal #1: Patient independent in basic HEP. Goal to be met by: 09/26/16 Progress towards Goal:: Met Goal #2: Left knee active flexion 95 degrees. Goal to be met by: 10/02/16 Progress towards Goal:: Met Goal #3: Pt to demonstrate good quad control. Goal to be met by: 09/26/16 Progress towards Goal:: Partially Met [employer] Goals Goal #1: Pt knows HEP and to continue ex's to maintain functional level at D/C. Goal to be met by: 11/01/16 Progress towards goal: Partially Met Goal #2: Score on LE functional index improved to 50/80. Goal to be met by: 11/01/16 (28/80) Progress towards goal: Progressing Goal #3: Pt to amb. w/o assistive device w/ minimal gt deviation, community distance Goal to be met by: 11/01/16 Progress towards goal: Progressing Goal #4: Pt able to perform all selfcare and ADL's without difficulty. Goal to be met by: 11/01/16 Progress towards goal: Progressing Plan PLAN OF CARE EXPIRES ON:: 11/01/16 ORDER # VISITS AND/OR THROUGH DATE: 11/01/16 PLAN: Progress Exercises
== END 2016-11-08 ==
PROVIDERS: ATTEND Orthopaedic Surgery
DX: M17.12 Unilateral primary osteoarthritis, left knee (principal)

== ENCOUNTER 2017-04-23 08:13 | Outpatient (CLI) ==
--- NOTE | 2017-04-23 09:47 | DI ---
Exam: Two x-rays of the chest. Comparison: None available. Reason for exam: Wheezing. FINDINGS: No pneumothorax, pleural effusion, or focal consolidation. The cardiac silhouette is not enlarged. There are increased interstitial lung markings with mild prominence of the central and sma ll airways. Impression: 1. Increased central and small airway prominence can be seen with bronchitis, bronchiolitis, and air way infection. 2. Mildly increased interstitial lung markings can be seen with edema.
== END 2017-04-23 08:14 | disposition home or self-care (01) ==
LOC: LAB 08:13
PROVIDERS: ATTEND Family Medicine
DX: Z00.00 Encounter for general adult medical examination without abnormal findings (principal); R73.9 Hyperglycemia, unspecified; I10 Essential (primary) hypertension; R06.2 Wheezing; I25.2 Old myocardial infarction; Z72.0 Tobacco use
CPT/HCPCS: 36415; 80053; 80061; 80306; 81001; 83036; 84439; 84443; 85025; 93005; 93010

== ENCOUNTER 2017-06-24 07:59 | Outpatient (CLI) | END 2017-06-24 08:00 | disposition home or self-care (01) | LOC: LAB 07:59 | PROVIDERS: ATTEND Family Medicine | DX: E11.9 Type 2 diabetes mellitus without complications (principal); J44.9 Chronic obstructive pulmonary disease, unspecified; E66.9 Obesity, unspecified | CPT/HCPCS: 36415; 80053; 80061; 83036; 85025 ==

== ENCOUNTER 2017-12-02 08:58 | Outpatient (CLI) ==
--- NOTE | 2017-12-02 09:34 | DI ---
Exam: Three views lumbar spine. Comparison: None available. Reason for exam: Low back pain. FINDINGS: The vertebral body heights are well maintained. There is a grade 1 anterior listhesis of L5 on S1 with intervertebral body disc space height loss. Dense atherosclerotic disease is seen with in the aorta and distal arterial vasculature. There is a normal appearing lumbar lordotic curve. Impression: 1. No acute fracture in the lumbar spine. 2. Grade 1 anterior listhesis of L5 on S1 with intervertebral body disc space height loss and osteop hyte formation. If clinical concern exists for radiculopathy or myelopathy, MRI may be performed
== END 2017-12-02 08:59 | disposition home or self-care (01) ==
LOC: RAD 08:58
PROVIDERS: ATTEND Family Medicine
DX: M54.5 Low back pain (principal); M54.16 Radiculopathy, lumbar region

== ENCOUNTER 2018-03-07 12:39 | Outpatient (CLI) ==
--- NOTE | 2018-03-10 09:21 | MAMMO ---
EXAM: Digital screening mammogram with tomosynthesis HISTORY: Screening COMPARISON: None FINDINGS: Digital MLO and CC views of the right and left breast were performed. Tomosynthesis was performed. Computer aided detection utilized. There are scattered fibroglandular densities. There is no evidence for mass, asymmetry, distortion, or suspicious calcifications in either breast. IMPRESSION: 1. No evidence of malignancy in the right or left breast. 2. Annual screening mammogram is recommended in one year. BIRADS category 1, negative examination
== END 2018-03-07 12:40 | disposition home or self-care (01) ==
LOC: RAD 12:39
PROVIDERS: ATTEND Physician Assistant
DX: Z12.31 Encounter for screening mammogram for malignant neoplasm of breast (principal)

== ENCOUNTER 2018-03-14 12:39 | Outpatient (CLI) ==
[2018-03-14] MEDS ORDERED: ALBUTEROL 0.083% NEB NEB STA (13:01)
== END 2018-03-14 12:40 | disposition home or self-care (01) ==
LOC: CAR 12:39
PROVIDERS: ATTEND Physician Assistant
DX: J44.9 Chronic obstructive pulmonary disease, unspecified (principal)

== ENCOUNTER 2018-07-09 10:48 | Outpatient (CLI) | END 2018-07-09 10:49 | disposition home or self-care (01) | LOC: LAB 10:48 | PROVIDERS: ATTEND Internal Medicine | DX: I25.10 Atherosclerotic heart disease of native coronary artery without angina pectoris (principal); I10 Essential (primary) hypertension; E66.9 Obesity, unspecified | CPT/HCPCS: 36415; 80061; 84439; 84443 ==

== ENCOUNTER 2018-07-10 08:22 | Outpatient (CLI) ==
--- NOTE | 2018-07-10 09:37 | US ---
EXAM: Renal ultrasound. History: Hypertension. Technique: Multiple sonographic images through the kidneys were obtained. Color duplex Doppler was used to interrogate vascular flow. Findings: Neither ureteral jet was seen in the bladder. Bladder was not well distended. The right kidney measures 8.2 cm in long length without evidence for hydronephrosis, mass or shadowin g calculus. The liver is echogenic compared to the adjacent right renal cortex. The left kidney measures 11.4 cm in long length without evidence for hydronephrosis or shadowing calc ulus. 1.7 cm focal mass within the left kidney is indeterminate. Impression: 1. Indeterminate 1.7 cm hypoechoic mass within the left kidney. Recommend further evaluation with M PA renal mass protocol. 2. No hydronephrosis. 3. Hepatic steatosis
== END 2018-07-10 08:23 | disposition home or self-care (01) ==
LOC: RAD 08:22
PROVIDERS: ATTEND Internal Medicine
DX: I10 Essential (primary) hypertension (principal)

== ENCOUNTER 2018-07-11 08:20 | Outpatient (CLI) ==
--- NOTE | 2018-07-11 09:34 | US ---
EXAM: Renal arterial Doppler History: Hypertension. Comparison: Renal ultrasound 07/10/2018 Technique: Multiple sonographic images through the kidneys were obtained. Color duplex Doppler was used to interrogate vascular flow. Findings: The right kidney measures 8.4 cm in long length without evidence for hydronephrosis. The left kidney measures 11.5 cm in long length without evidence for hydronephrosis. The bilateral renal arteries were not well visualized due to obscuration by bowel gas. The right renal resistive index is 0.62 and the left renal resistive index is 0.80. Impression: Poor visualization of the bilateral renal arteries due to obscuration by bowel gas. Rec ommend further evaluation with CTA of the renal arteries.
== END 2018-07-11 08:21 | disposition home or self-care (01) ==
LOC: RAD 08:20
PROVIDERS: ATTEND Internal Medicine
DX: I10 Essential (primary) hypertension (principal)

== ENCOUNTER 2018-07-14 08:40 | Outpatient (CLI) ==
--- NOTE | 2018-07-14 09:48 | DI ---
EXAM: CHEST FRONTAL AND LATERAL VIEWS HISTORY: Chest pain, smoker, hypertension. COMPARISON: 04/23/2017 FINDINGS: Heart size is within normal limits. Atherosclerotic disease is noted. Less than optimal lung inflation. Mild bibasilar density. No vascular congestion, pneumothorax or pleural fluid IMPRESSION: 1. Atherosclerotic disease. 2. Mild basilar atelectasis versus less likely pneumonia. Correlate clinically.
== END 2018-07-14 08:41 | disposition home or self-care (01) ==
LOC: RAD 08:40
PROVIDERS: ATTEND Internal Medicine
DX: R07.9 Chest pain, unspecified (principal); I10 Essential (primary) hypertension; F17.210 Nicotine dependence, cigarettes, uncomplicated

== ENCOUNTER 2018-07-17 06:47 | Outpatient (CLI) ==
--- NOTE | 2018-07-22 08:45 | ECHO2D ---
Date of Exam: 07/17/18 Ordering Physician: DR. MARYBETH PEÑA Room #: OP Reason for Echo: CHEST PAIN, SOB, HTN M-Mode Normal Adult Results LV Dimensions Normal Adult Results AoV Opening excursions >1.6 >1.6 LVEDD-base- 3.5-5.8 4.3 Ao root dimensions 2.0-3.7 2.8 LVESD-base- 3.1-4.6 L. Atrium dimensions 1.9-3.8 4.0 Post. Wall thickness 0.8-1.1 1.2 IV septum (thickness) 0.7-1.2 1.4 Post. Wall excursion 0.72-1.3 NORMAL Septal motion NORMAL Systolic motion R. Ventricular cavity 1.5-2.0 NORMAL LVEF 60% 75% Paradoxical septal wall motion NORMAL 2-D : 2-D M Mode Echocardiogram was performed using apical four chamber and left parasternal long and short axis views. Mitral, tricuspid and aortic valves appear to be normal. Contractility of the left ventricle seems to be normal, so is the cavity size. MILDLY ENLARGED LEFT ATRIAL CAVITY. Aortic root appears to be normal. There is no pericardial effusion. There is no thrombus noted in the left ventricular or left aortic cavity. No mitral valve prolapse noted. M-MODE: MV: NORMAL AV: NORMAL TV: NORMAL PV: CHAMBER SIZE: MILDLY ENLARGED LEFT ATRIAL CAVITY WALL MOTION: NORMAL PERICARDIUM: NORMAL INTERPRETATION: 1. LEFT VENTRICULAR HYPERTROPHY WITH MILDLY ENLARGED LEFT ATRIAL CAVITY 2. NORMAL LEFT VENTRICULAR CONTRACTILITY 3. NORMAL VALVES MTDD
== END 2018-07-17 06:48 | disposition home or self-care (01) ==
LOC: CAR 06:47
PROVIDERS: ATTEND Internal Medicine
DX: R07.9 Chest pain, unspecified (principal); R06.02 Shortness of breath; I10 Essential (primary) hypertension

== ENCOUNTER 2018-07-18 06:40 | Outpatient (CLI) ==
[2018-07-18] MEDS ORDERED: DOBUTAMINE 500 MG-D5W 250 ML 250 ML IV ONE (07:22)
[2018-07-18] MEDS ORDERED: ATROPINE SULFATE PFS ONE (07:22)
--- NOTE | 2018-07-18 11:02 | NM ---
Cardiac Stress Test HISTORY: Increasing shortness of breath and chest pain. Stent placed 3 years ago. COMPARISON: None of this type. TECHNIQUE: Resting: The patient was injected with 12.0 millicuries of 99m technetium Sestamibi (Cardiolite) int ravenously after which a "resting" SPECT study of the heart was performed. Stress: The patient was stressed pharmacologically with dobutamine and at the appropriate time injec thea with 32.5 millicuries of 99m technetium Sestamibi (Cardiolite) after which a "stress" SPECT study of the heart was performed. Gated images of the heart were also obtained to assess wall motion and calculate ejection fraction. For details of the stress protocol employed, reference is made to the s eparate report of the performing physician. FINDINGS: The stress perfusion images demonstrate a generally uniform distribution of activity in th e left ventricular myocardium. In addition, there is a small region of modestly decreased activity i n the septum on the stress images which improves at rest. This could represent breast attenuation ar tifact. Computer analysis considers it equivocal. The resting perfusion images demonstrate no evide nce of significant redistribution/ischemia. The left ventricular ejection fraction (LVEF) is 69%. IMPRESSION: 1. Left ventricular myocardial perfusion demonstrates a small region of questionable ischemia in the septum as discussed in the report. 2. The left ventricular ejection fraction (LVEF) is 69%.
--- NOTE | 2018-07-22 08:36 | DOBSTECHST ---
Ordering Physician: DR. MARYBETH PEÑA Date of Test: 07/18/18 Reason for Examination: SOB, HTN Smoking History: 30 YRS Height: 63" Weight: 212 lbs Current Medications: METFORMIN, ASA, LOPRESSOR, LOSARTAN, SYMBICORT, VENTOLIN, ULTRAM Target Heart Rate: 133/151 S-T Segment Stage Time HR BPM BP MMHG Rhythm +/- Elevation Depression Symptoms Control Sitting 59 140/70 SR X NONE Dobutamine 250mg/D5W 5cmg/KG/mn 10cmg/KG/mn 3:00 70 142/62 SR X NONE 15cmg/KG/mn 2:00 85 SR X NONE 20cmg/KG/mn 2:00 93 152/68 SR X NONE 25cmg/KG/mn 2:00 103 SR X NONE 30cmg/KG/mn 2:00 115 150/60 SR X NONE 35cmg/KG/mn 2:00 122 148/50 SR X NONE 40cmg/KG/mn 1:39 123 SR X NONE 5 MIN POST INFUSION z 94 130/68 SR X NONE 9 MIN POST INFUSION z 81 SR X NONE DURATION OF INFUSION 14:39 MAXIMUM HEART RATE REACHED 123 BPM Interpretation: 1. NO EVIDENCE OF ISCHEMIA BY ST-T WAVE 2. CHEST PAIN /DISCOMFORT AT THE FINAL STAGE OF DOBUTAMINE INFUSION 3. NORMAL LEFT VENTRICULAR CONTRACTILITY RESTING AND WITH DOBUTAMINE INFUSION SESTAMIBI TO FOLLOW MTDD
--- NOTE | 2018-07-22 08:41 | ECHOSTRESS ---
Date of Exam: 07/18/18 Ordering Physician: DR. MARYBETH PEÑA Reason for Echo: SOB, HTN, DOBUTAMINE STRESS--NO ISCHEMIA M-Mode Normal Adult Results LV Dimensions Normal Adult Results AoV Opening excursions >1.6 LVEDD-base- 3.5-5.8 Ao root dimensions 2.0-3.7 LVESD-base- 3.1-4.6 L. Atrium dimensions 1.9-3.8 Post. Wall thickness 0.8-1.1 IV septum (thickness) 0.7-1.2 Post. Wall excursion 0.72-1.3 Septal motion Systolic motion R. Ventricular cavity 1.5-2.0 LVEF 60% Paradoxical septal wall motion 2-D: NORMAL LEFT VENTRICULAR CONTRACTILITY--RESTING AND WITH DOBUTAMINE INFUSION M-MODE: MV: AV: TV: PV: CHAMBER SIZE: WALL MOTION: NORMAL LEFT VENTRICULAR CONTRACTILITY--RESTING AND WITH DOBUTAMINE INFUSION PERICARDIUM: INTERPRETATION: 1. NORMAL LEFT VENTRICULAR CONTRACTILITY--RESTING AND WITH DOBUTAMINE INFUSION SESTAMIBI TO FOLLOW MTDD
== END 2018-07-18 06:41 | disposition home or self-care (01) ==
LOC: CAR 06:40
PROVIDERS: ATTEND Internal Medicine
DX: R07.9 Chest pain, unspecified (principal); R06.02 Shortness of breath; I10 Essential (primary) hypertension
CPT/HCPCS: 36415; 82565

== ENCOUNTER 2018-07-21 06:52 | Outpatient (CLI) ==
--- NOTE | 2018-07-21 12:40 | MRI ---
EXAM: MRI abdomen without and with contrast HISTORY: Hypoechoic mass, left kidney TECHNIQUE: Multiplanar, multisequence without and following the administration of intravenous Dotare m, 20 mL using a renal protocol COMPARISON: Renal sonogram from 07/10/2018 FINDINGS: The heart size is normal. No pericardial or pleural effusions are appreciated. There is marked diffuse loss of signal within the hepatic parenchyma on the rdy-ma-otjhy images as co mpared to the in-phase images. No hepatic lesions are appreciated. The gallbladder is free intralum inal filling defects. There is no biliary dilatation. The pancreas is normal bright T1 signal and n ormal enhancement. Adrenal glands have normal signal and morphology. The spleen has normal size and signal intensity. There are two small simple cysts at the interpolar region of the right kidney. A tiny cyst is suggested at the superior pole of the left kidney. No suspicious renal masses are evid ent. There is no ureteral pelvicaliectasis. The right kidney is atrophic. Diverticula arise from the second and third portions of the duodenum. The intestines have normal ijeoma iber and signal. The aorta has normal caliber and flow signal. No lymphadenopathy or ascites. The bone marrow signal intensity is grossly normal. IMPRESSION: 1. No MR correlate for the suspected hypoechoic lesion in the left kidney. 2. Simple acquired renal cysts. 3. Atrophic right kidney. 4. Marked diffuse hepatic steatosis. 5. Duodenal diverticulosis.
== END 2018-07-21 06:53 | disposition home or self-care (01) ==
LOC: RAD 06:52
PROVIDERS: ATTEND Internal Medicine
DX: D41.02 Neoplasm of uncertain behavior of left kidney (principal); I10 Essential (primary) hypertension

== ENCOUNTER 2018-08-07 12:35 | Emergency (ER) ==
[2018-08-07 12:46] VITALS: BP 149/77; TEMP 98.7; BMI 35.7
--- NOTE | 2018-08-07 14:54 | CT ---
EXAM: CT left foot without contrast HISTORY: Pain, swelling, redness to foot, cannot bear weight without pain COMPARISON: None TECHNIQUE: CT left foot performed without intravenous contrast. Coronal and sagittal reformatted im ages obtained. FINDINGS: No acute fracture or dislocation. Small plantar are and posterior calcaneal spurs. 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 Small ossification about the dorsal midfoot appears well marginated and is likely chronic , may be due to old trauma or degenerative change. Subcutaneous edema about the foot. No focal drai nable collection. Atherosclerotic vascular calcification. IMPRESSION: 1. Subcutaneous edema about the foot, can be correlated for edema and/or cellulitis. No focal drain able collection. No CT findings of osteomyelitis. No acute fracture or dislocation. 2. 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 3. Calcaneal spurring.
[2018-08-07] MEDS ORDERED: DECADRON 4 MG/ML SDV IM STA (15:28)
[2018-08-07] MEDS ORDERED: LEVAQUIN PO STA (15:29)
--- NOTE | 2018-08-07 16:10 | ED.PDOC ---
General ED Provider: Dr. MACY HAMPTON Chief Complaint: Foot Pain/Injury Stated Complaint: left foot pain Time Seen by Physician: 12:40 (seen with nurse at all times ) Mode of Arrival: Wheelchair Information Source: Patient Exam Limitations: No limitations Primary Care Provider: MARYBETH PEÑA Nursing and Triage Documentation Reviewed and Agree: Yes Does patient meet sepsis criteria?: No System Inflammatory Response Syndrome: Not Applicable Sepsis Protocol: For patient's 13 years and over: Temp is 96.8 and below OR 101 and greater Pulse >90 BPM Resp >20/minute Acutely Altered Mental Status Are patient's symptoms suggestive of a new infection, such as: -Pneumonia -Skin, Soft Tissue -Endocarditis -UTI -Bone, Joint Infection -Implantable Device -Acute Abdominal Infection -Wound Infection -Meningitis -Blood Stream Catheter Infection -Unknown Musculoskeletal Complaint Exam - Ankle/Foot Complaint/Exam Location of Injury: Reports: Left, Ankle, Foot Mechanism of Injury: Reports: No known trauma Onset/Duration: 1 day Symptoms Are: Reports: Still present Onset of Pain: Reports: Immediate Initial Severity: Moderate Current Severity: Moderate Location: Reports: Discrete (left foot only ) Character: Reports: Throbbing Alleviating: Reports: None Aggravating: Reports: Movement, Weight bearing, Prolonged standing Able to Bear Weight: Yes Associated Signs and Symptoms: Reports: Swelling, Redness. Denies: Bruising, Fever, Weakness, Numbness, Tingling Gout Risk Factors: Reports: >40 years old Related Surgical History: Reports: None Lower Extremity Findings: Present: Erythema, Warmth, Tenderness Achilles Tendon Abnormality: No Tenderness: Present: Midfoot, Digits (big toe) Differential Diagnosis: Gout, Sprain, Strain Review of Systems - Review Of Systems Constitutional: Reports: No symptoms Eyes: Reports: No symptoms Ears, Nose, Mouth, Throat: Reports: No symptoms Respiratory: Reports: No symptoms Cardiac: Reports: No symptoms GI: Reports: No symptoms : Reports: No symptoms Musculoskeletal: Reports: Joint pain (foot) Skin: Reports: No symptoms Neurological: Reports: No symptoms Endocrine: Reports: No symptoms Hematologic/Lymphatic: Reports: No symptoms All Other Systems: Reviewed and Negative Past Medical History - Past Medical History Previously Healthy: Yes Endocrine: Reports: None Cardiovascular: Reports: None Respiratory: Reports: None Hematological: Reports: None Gastrointestinal: Reports: None Genitourinary: Reports: None Neuro/Psych: Reports: None Musculoskeletal: Reports: None Cancer: Reports: None Last Menstrual Period: unknown - Surgical History General Surgical History: Reports: None - Family History Family History: Reports: None - Social History Smoking Status: Current some day smoker, Heavy tobacco smoker Hx Substance Use: No Alcohol Screening: None Physical Exam - Physical Exam Appearance: Well-appearing, No pain distress, Well-nourished Eyes: ALEX, EOMI, Conjunctiva clear ENT: Ears normal, Nose normal, Oropharynx normal Respiratory: Airway patent, Breath sounds clear, Breath sounds equal, Respirations nonlabored Cardiovascular: RRR, Pulses normal, No rub, No murmur GI/: Soft, Nontender, No masses, Bowel sounds normal, No Organomegaly Musculoskeletal: Limited ROM (foot edema ) Skin: Warm, Dry, Normal color Neurological: Sensation intact, Motor intact, Reflexes intact, Cranial nerves intact, Alert, Oriented Psychiatric: Affect appropriate, Mood appropriate Interpretation - Radiology Interpretation Radiology Interpretation By: Radiologist Radiology Results: Positive (edema possible cellulitis) Critical Care Note - Critical Care Note Total Time (mins): 0 Course - Course Orders, Labs, Meds: Lab Review 08/07/18 14:03 Uric Acid 8.69 H Orders Category Date Time Status URIC ACID Stat LAB 08/07/18 14:03 Completed Dexamethasone 4 mg/ml Inj [Decadron 4 mg/ml Sdv] MEDS 08/07/18 15:28 Discontinued 8 mg IM ONCE STA Levofloxacin [Levaquin] MEDS 08/07/18 15:29 Discontinued 500 mg PO ONCE STA CT FOOT LEFT WITHOUT CONTRAST Stat RADS 08/07/18 14:03 Completed Medications Discontinued Medications Generic Name Dose Route Start Last Admin Trade Name Jdq PRN Reason Stop Dose Admin Dexamethasone Sodium Phosphate 8 mg 08/07/18 15:28 08/07/18 15:47 Decadron 4 Mg/Ml Sdv IM 08/07/18 15:29 8 mg ONCE STA Administration Levofloxacin 500 mg 08/07/18 15:29 08/07/18 15:49 Levaquin PO 08/07/18 15:30 500 mg ONCE STA Administration Vital Signs: Temp Pulse Resp BP Pulse Ox 08/07/18 12:35 98.7 F 74 20 149/77 H 96 Departure - Departure Time of Disposition: 16:11 Disposition: HOME SELF-CARE Discharge Problem: Cellulitis Gout attack Qualifiers: Gout site: foot Gout etiology: unspecified cause Laterality: left Qualified Code(s): M10.9 - Gout, unspecified Instructions: Gout (ED), Cellulitis (ED) Condition: Good Pt referred to PMD for follow-up: Yes IPMP verified?: No Additional Instructions: Please call your Family Physician as soon as possible to schedule a follow-up appointment. Prescriptions: Hydrocodone Bit/Acetaminophen [[place] 10-325] 1 each PO Q6HR 5 Days #15 tablet Allergies/Adverse Reactions: Allergies lovastatin Adverse Reaction (Verified 08/07/18 12:46) Home Medications: Ambulatory Orders Hydrocodone Bit/Acetaminophen [[place] 10-325] 1 each PO Q6HR 5 Days #15 tablet Prednisone 40 mg PO DAILYWM #5 tablet 08/07/18
== END 2018-08-07 16:28 | disposition home or self-care (01) ==
LOC: ED 12:35
DX: L03.116 Cellulitis of left lower limb (principal); M10.9 Gout, unspecified
CPT/HCPCS: 36415; 84550; 96372; 99282

== ENCOUNTER 2018-08-10 16:00 | Emergency (ER) ==
[2018-08-10 16:03] VITALS: BP 214/83; TEMP 98.7; BMI 36.9
--- NOTE | 2018-08-10 16:21 | ED.PDOC ---
General ED Provider: Dr. CHRISTIAN ZHENG Chief Complaint: Urinary Problem Stated Complaint: Back pain, now worse R side down to suprapubic area. Dribbling urine and blood tiged when wiping. Stsarted couple of days ago - worse last night. Time Seen by Physician: 16:10 Mode of Arrival: Walk-In Information Source: Patient Exam Limitations: No limitations Primary Care Provider: MARTITA BIGGS Nursing and Triage Documentation Reviewed and Agree: Yes Does patient meet sepsis criteria?: No System Inflammatory Response Syndrome: Not Applicable Sepsis Protocol: For patient's 13 years and over: Temp is 96.8 and below OR 101 and greater Pulse >90 BPM Resp >20/minute Acutely Altered Mental Status Are patient's symptoms suggestive of a new infection, such as: -Pneumonia -Skin, Soft Tissue -Endocarditis -UTI -Bone, Joint Infection -Implantable Device -Acute Abdominal Infection -Wound Infection -Meningitis -Blood Stream Catheter Infection -Unknown Review of Systems - Review Of Systems Constitutional: Reports: No symptoms Respiratory: Reports: No symptoms Cardiac: Reports: No symptoms : Reports: Burning, Dysuria, Frequency, Flank pain Musculoskeletal: Reports: Back pain All Other Systems: Reviewed and Negative Past Medical History - Past Medical History Previously Healthy: Yes Endocrine: Reports: None Cardiovascular: Reports: None Respiratory: Reports: None Hematological: Reports: None Gastrointestinal: Reports: None Genitourinary: Reports: None Neuro/Psych: Reports: None Musculoskeletal: Reports: None Cancer: Reports: None Last Menstrual Period: HYSTERECTOMY - Surgical History General Surgical History: Reports: None - Family History Family History: Reports: None - Social History Smoking Status: Current some day smoker, Heavy tobacco smoker Hx Substance Use: No Alcohol Screening: None Physical Exam - Physical Exam Appearance: Well-appearing Ill-appearing: None Pain Distress: Mild Eyes: ALEX, EOMI Neck: Supple Respiratory: Airway patent, Breath sounds clear Cardiovascular: RRR GI/: Soft, Nontender Musculoskeletal: Normal strength, ROM intact Skin: Warm, Dry, Normal color Neurological: Sensation intact, Motor intact, Alert, Oriented Psychiatric: Affect appropriate, Mood appropriate Re-Evaluation - Re-Evaluation Time of Re-Evaluation: 17:00 (Educated re UA and plan to CT looking for stone) Status: Unchanged Vital Signs Stable: Yes Appearance: NAD Critical Care Note - Critical Care Note Total Time (mins): 35 Course - Course Orders, Labs, Meds: Lab Review 08/10/18 16:20 Urine Color Yellow Urine Clarity Clear Urine pH 5.5 Ur Specific Monon 1.020 Urine Protein 1+ Urine Glucose (UA) 2+ Urine Ketones Negative Urine Blood 3+ Urine Nitrite Negative Urine Bilirubin Negative Urine Urobilinogen 0.2 Ur Leukocyte Esterase Negative Urine Microscopic RBC 50-100 Ur Squamous Epith Cells Not present Orders Category Date Time Status URINALYSIS C & S IF INDICATED Stat LAB 08/10/18 16:20 Completed Ketorolac Tromethamine [Toradol] MEDS 08/10/18 16:27 Discontinued 30 mg IVP ONCE STA Ondansetron HCl/Pf [Zofran 4 mg/2 ml] MEDS 08/10/18 16:28 Discontinued 4 mg IVP ONCE STA Sodium Chloride 0.9% [Sodium Chloride] 1,000 ml MEDS 08/10/18 16:[address] ABDOMEN/PELVIS WO CONTRAST Stat RADS 08/10/18 17:02 Completed Medications Discontinued Medications Generic Name Dose Route Start Last Admin Trade Name Freq PRN Reason Stop Dose Admin Sodium Chloride 1,000 mls @ 1,000 mls/hr 08/10/18 16:27 08/10/18 16:44 Sodium Chloride IV 08/10/18 17:26 1,000 mls/hr BOLUS STA Administration Ketorolac Tromethamine 30 mg 08/10/18 16:27 08/10/18 16:44 Toradol IVP 08/10/18 16:28 30 mg ONCE STA Administration Ondansetron HCl 4 mg 08/10/18 16:28 08/10/18 16:45 Zofran 4 Mg/2 Ml IVP 08/10/18 16:29 4 mg ONCE STA Administration Vital Signs: Temp Pulse Resp BP Pulse Ox 08/10/18 16:00 98.7 F 92 H 18 214/83 H 94 L Departure - Departure Time of Disposition: 17:58 Disposition: HOME SELF-CARE Discharge Problem: Urinary calculi Qualifiers: Urinary calculus location: lower urinary tract Qualified Code(s): N21.9 - Calculus of lower urinary tract, unspecified Instructions: Kidney Stones (ED) Condition: Stable Pt referred to PMD for follow-up: Yes (Follow up with primary care) IPMP verified?: No (Patient recently received Demorest for an unrelated diagnosis) Additional Instructions: Take medications as prescribed (norco, flomax and pyridium); follow up with primary care. Prescriptions: Hydrocodone Bit/Acetaminophen [Demorest 7.5-325] 1 tab PO Q6HR PRN #12 tablet PRN Reason: pain Phenazopyridine HCl [Pyridium] 100 mg PO TID #10 tablet Tamsulosin HCl [Flomax] 0.4 mg PO DAILY #12 cap.er.24h Allergies/Adverse Reactions: Allergies lovastatin Adverse Reaction (Verified 08/10/18 16:02) Home Medications: Ambulatory Orders Albuterol Sulfate [Ventolin Hfa] 8 gm IH Q4HR 08/10/18 Amlodipine Besylate 5 mg PO DAILY 08/10/18 Aspirin [Aspir-Low] 81 mg PO DAILY 08/10/18 Budesonide/Formoterol Fumarate [Symbicort 160-4.5 Mcg Inhaler] 2 puff IH BID 04/29 Hydrocodone Bit/Acetaminophen [Demorest 7.5-325] 1 tab PO Q6HR PRN #12 tablet 08/10 Losartan/Hydrochlorothiazide [Losartan-Hctz 100-12.5 mg Tab] 1 each PO DAILY 04/29 Metformin HCl 1,000 mg PO BID 08/10/18 Metoprolol Tartrate [Lopressor] 25 mg PO BID 08/10/18 Phenazopyridine HCl [Pyridium] 100 mg PO TID #10 tablet 08/10/18 Pravastatin Sodium [Pravachol] 20 mg PO DAILY 08/10/18 Tamsulosin HCl [Flomax] 0.4 mg PO DAILY #12 cap.er.24h 08/10/18 Tramadol HCl [Ultram] 50 mg PO BID PRN 08/10/18 Disposition Discussed With: Patient (and )
[2018-08-10] MEDS ORDERED: SODIUM CHLORIDE 1,000 ML IV STA (16:27)
[2018-08-10] MEDS ORDERED: TORADOL IVP STA (16:27)
[2018-08-10] MEDS ORDERED: ZOFRAN 4 MG/2 ML IVP STA (16:28)
--- NOTE | 2018-08-10 17:37 | CT ---
Exam: CT scan of the abdomen pelvis without contrast. Date: 08/10/2018. Comparison: None. HISTORY: Back pain that radiates to the abdomen. TECHNIQUE: Helical scan of the abdomen pelvis was performed without contrast. FINDINGS: The lung bases are clear. 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 The spleen and liver have a uniform attenuation although the attenuation of the liver is 0 HU. The g allbladder is contracted. The stomach, pancreas and adrenal glands are normal. The kidneys have a n ormal morphology. There is a 0.5 cm nonobstructing calculus in the lower pole of the right kidney. There are two calculi in the distal right ureter that measure up to 0.4 cm, visible on axial image 12 8 and axial image 130 and coronal images 74 and 73. There is mild associated hydronephrosis. No ret roperitoneal adenopathy is present. Aorta has peripheral calcification and does not exceed 3 cm. Th e small bowel is normal. There are colonic diverticula but no inflammatory changes. Pelvic sidewall and bladder are normal. Hysterectomy has been performed. The rectum inguinal regions are normal. Impression: There are two calculi in the distal right ureter, that measure up to 0.4 cm and are with in 3 cm of the ureterovesicular junction with associated mild right hydronephrosis. There is an carie tional nonobstructing calculus in the lower pole of the right kidney. Hepatic steatosis. Hysterectomy. Minimal diverticulosis without diverticulitis.
== END 2018-08-10 18:18 | disposition home or self-care (01) ==
LOC: ED 16:00
DX: N21.9 Calculus of lower urinary tract, unspecified (principal); F17.210 Nicotine dependence, cigarettes, uncomplicated; Z79.899 Other long term (current) drug therapy
CPT/HCPCS: 81001; 96360; 96375; 99283